=== PATIENT | male | born 1995 ===

== ENCOUNTER 2021-02-15 01:05 | Outpatient (CLI) | payer OTHER | END 2021-02-15 15:00 | disposition home or self-care (01) | LOC: LAB 01:05 | PROVIDERS: ATTEND Obstetrics & Gynecology | DX: Z20.818 Contact with and (suspected) exposure to other bacterial communicable diseases (principal); Z20.828 Contact with and (suspected) exposure to other viral communicable diseases ==

== ENCOUNTER 2022-01-12 10:43 | Outpatient (CLI) | payer OTHER | END 2022-01-12 10:46 | disposition home or self-care (01) | LOC: LAB 10:43 | PROVIDERS: ATTEND Obstetrics & Gynecology | DX: Z20.828 Contact with and (suspected) exposure to other viral communicable diseases (principal); Z20.818 Contact with and (suspected) exposure to other bacterial communicable diseases ==